=== PATIENT | female | born 1975 | race Caucasian/White ===

== ENCOUNTER 2025-08-11 10:32 | Emergency (ER) | payer BC, SELFPAY ==
[2025-08-11] VITALS (17 sets, daily range): BP systolic 110–147; BP diastolic 68–99; PULSE 56–78; RESP 13–20; TEMP 36.7; O2SAT 97–100
--- NOTE | ~2025-08-11 | CT_ITS ---
CT abdomen pelvis w con Clinical History: LUQ abdominal pain, constipation, diarrhea . Comparison: None Technique: Axial images lung bases to symphysis pubis 100 mL Omnipaque 350 Coronal, sagittal reformats CT images acquired with automatic exposure control for dose reduction DLP: 369 mGy-cm Findings: Lung bases: Clear. Visualized heart and pericardium: Unremarkable. Liver: Hypodense focus segment 4A peripherally; likely focal fat, cyst, or hemangioma. Gallbladder: Contracted. Spleen: Unremarkable. Pancreas: Unremarkable. Adrenal glands: Unremarkable. Kidneys: Bilateral lobulation and/or cortical defects. Right kidney- No hydronephrosis. No renal stones. Left kidney- No hydronephrosis. No renal stones. Distal esophagus/stomach: Small hiatal hernia. Small bowel loops: Normal caliber and wall thickness. Suture line right lower quadrant. Colon: A few diverticula. Normal caliber and wall thickness. Normal RLQ appendix. Moderate volume stool. Nodes: No enlarged nodes. Peritoneum: No ascites. No free air. Urinary bladder: Unremarkable. Uterus: Unremarkable. Adnexa: No masses. Bones: No acute bony abnormality. Soft tissues: Unremarkable. Aorta: No aneurysm or dissection. IVC: Unremarkable. Main portal vein/SMV/splenic vein: Patent. IMPRESSION: 1. No acute findings. Reviewed, dictated and finalized at location R. IMPRESSION: 1. No acute findings.
--- NOTE | ~2025-08-11 | XR_ITS ---
Examination: XR chest 1V portable Clinical History: chest pain Comparison: None Technique: Portable AP Findings: Heart size normal. Lungs clear. No acute bony abnormality. IMPRESSION: 1. No acute cardiopulmonary findings given portable technique. Reviewed, dictated and finalized at location R.
--- NOTE | 2025-08-11 10:37 | ED_ITS ---
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 Patient complaining of showed relies abdominal pain for months mainly at the epigastric area. She denies any fever, chills, vomiting, diarrhea, constipation. History of hypertension hyperlipidemia coronary stents, tobacco dependent, uses marijuana daily, drinks alcohol occasionally. Patient reports a lot of stress lately. Patient is scheduled for cardiac stress test next month. Patient currently on aspirin and Plavix Related Data Home Medications ?Medication ?Instructions ?Recorded ?Confirmed ?Last Taken ?Type aspirin 81 mg chewable tablet 81 mg PO DAILY 08/11/25 Unknown History (Aspirin Childrens) atorvastatin 80 mg tablet 80 mg PO QPM 08/11/25 Unkno wn History carvedilol 6.25 mg tablet 6.25 mg PO Q12H 08/11/25 Un known History cholecalciferol (vitamin D3) 25 25 mcg PO DAILY Unknown History mcg (1,000 unit) capsule (Vitamin D3) clopidogrel 75 mg tablet 75 mg PO DAILY 08/11/25 Unk nown History famotidine 20 mg tablet 20 mg PO DAILY 08/11/25 Unk nown History lisinopril 20 mg tablet 20 mg PO DAILY 08/11/25 Unk nown History nitroglycerin 0.4 mg sublingual 0.4 mg sublingual Q5M 08/11/25 08/11/25 History tablet Allergies Allergy/AdvReac Type Severity Reaction Status Date / Time codeine Allergy Intermediate Itching Verified 08/11/25 10:45 Review of Systems 2 Review of Systems: All systems reviewed & are unremarkable except as noted in HPI and below Exam 2 Narrative: General appearance: Well-developed, well-nourished Skin: flushed, red skin of the neck and upper chest Head: Normocephalic, nontraumatic Eyes: Clear conjunctiva ENT: Oropharynx normal, ears normal, nose normal Neck: Supple, nontender Chest and respiratory: Airway patent, no respiratory distress, no accessory muscle use Heart: Regular rate/rhythm Abdomen: Soft, Mild diffuse tenderness, distended, quite bowel sounds, no guarding or rebound Vascular: Normal peripheral pulses, normal capillary refill. Musculoskeletal: Normal range of motion, nontender back Neurologic: Alert and oriented ?3, DRUG ENFORCEMENT AGENT is normal as tested, no gross motor deficit Course Vital Signs Vital signs: Vital Signs Temperature 36.7 C 08/11/25 10:33 Pulse Rate 61 08/11/25 10:33 Respiratory Rate 18 08/11/25 10:33 Blood Pressure 132/99 H 08/11/25 10:33 Pulse Oximetry 100 08/11/25 10:33 Oxygen Delivery Room Air 08/11/25 10:33 Temperature 36.7 C 08/11/25 10:33 Pulse Rate 61 08/11/25 10:33 Respiratory Rate 18 08/11/25 10:33 Blood Pressure 132/99 H 08/11/25 10:33 Pulse Oximetry 100 08/11/25 10:33 Oxygen Delivery Room Air 08/11/25 10:33 MDM - Chest Pain MDM Narrative Medical decision making narrative: patient came with multiple symptoms. Vital signs showing blood pressure 132/99 otherwise within normal limit Physical examination as above Differential diagnosis: Stress, anxiety, acute coronary syndrome, pancreatitis, gastritis, esophagitis, diverticulitis, cholecystitis, constipation, urinary tract infection. Blood workup today include CBC, CMP, troponin, lipase, pro BMP showed ADMISSIONS RECRUITER of 570 Chest x-ray showed no acute abnormality EKG on arrival showed sinus bradycardia at 57 beats per minute otherwise normal EKG. CT abdomen and pelvis with IV contrast showed insignificant abnormality. Patient abdominal pain resolved immediately after having IV contrast. Patient believes IV contrast cured her abdominal pain. Currently patient is asymptomatic, denies any chest pain or abdominal pain. Patient declined to be hospitalized at this time I would like to sign against medical advice I declare that I have personally explained to the patient the risks and consequences involved in leaving this facility at this time. the benefits of continued treatment and/or hospitalization. And the alternatives. If any. to continued treatment and/or hospitalization. if applicable.I have not identified any psychosis, drugs, mental illness, or medical illness that alters decision- making capacity (reasoning abilities ). Differential Diagnosis Differential diagnosis: Likely other (As above) Medical Records Data Attestation: I reviewed the patient's medical records. Lab Data Attestation: I reviewed the patient's lab results. 08/11/25 11:00 08/11/25 11:00 Labs: Lab Results 08/11/25 08/11/25 Range/Units 11:00 11:56 WBC 10.9 H (4.8-10.8) K/mm3 RBC 4.32 (4.20-5.40) M/mm3 Hgb 12.0 (12.0-15.0) g/dL Hct 38.6 (35.0-49.0) % MCV 89.4 (78.0-102.0) fL MCH 27.8 (27.0-31.0) pg MCHC 31.1 L (32-36) g/dL RDW 18.1 H (11.6-14.4) % Plt Count 317 (150-420) K/mm3 MPV 9.9 (9.2-11.8) fl Immature Gran % (Auto) 0.7 H (0.0-0.0) % Neut % (Auto) 61.1 (50.0-70.0) % Lymph % (Auto) 27.5 (18.0-42.0) % Sharp % (Auto) 7.6 (2.0-11.0) % Eos % (Auto) 2.6 (1.0-6.0) % Baso % (Auto) 0.5 (0.0-1.0) % Lymph # (Auto) 2.98 (1.10-4.50) K/mm3 Sharp # (Auto) 0.82 (0.10-0.90) K/mm3 Eos # (Auto) 0.28 (0.02-0.50) K/mm3 Baso # (Auto) 0.05 (0.00-0.10) K/mm3 Abs Immat Gran (auto) 0.08 H (0.00-0.00) K/mm3 Absolute Neuts (auto) 6.64 (1.70-7.20) K/mm3 Absolute Nucleated RBC 0.00 (0.00-0.00) K/mm3 Nucleated RBC % 0.0 (0-0.0) % PT 10.3 (9.50-12.1) Seconds INR 0.9 APTT 24.7 (23.9-30.70) Sec Sodium 140 (137-145) mmol/L Potassium 4.6 (3.4-5.0) mmol/L Chloride 106 (98-107) mmol/L Carbon Dioxide 24 (22-30) mmol/L Anion Gap 10 (4-12) mmol/L BUN 26 H (7-17) mg/dL Creatinine 1.28 H (0.7-1.0) mg/dL Estim Creat Clear Calc 45 ml/min Estimated GFR 44 L (59 - ) Glucose 129 H (65-110) mg/dL Calculated Osmolality 296 H (285-295) mOsm/kg Calcium 9.0 (8.4-10.2) mg/dL Total Bilirubin 0.5 (0.2-1.3) mg/dL AST 25 (14-36) U/L ALT 18 (6-35) U/L Alkaline Phosphatase 97 (38-126) U/L Troponin I < 0.012 (0.000-0.034) ng/mL NT-Pro-B Natriuret Pep 570 H (19.9-100) pg/mL Total Protein 7.7 (6.3-8.2) g/dL Albumin 4.1 (3.5-5.1) g/dL Lipase 68 (23-300) U/L Urine Color Light yellow (Yellow) Urine Appearance Clear (Clear) Urine pH 5.5 (5.0-8.0) Ur Specific [place] <= 1.005 L (1.010-1.020) Urine Protein Negative (Negative) Urine Glucose (UA) Negative (Negative) Urine Ketones Negative (Negative) Ur Blood (Man) Negative (Negative) Urine Nitrate Negative (Negative) Urine Bilirubin Negative (Negative) Urine Urobilinogen 0.2 (0.2-1.0) mg/dL Leukocyte Esterase Rfl Trace H (Negative) MORALES/UL Urine RBC 0-2 (0-2) /hpf Urine WBC 0-3 (0-3) /hpf Ur Squamous Epith Cells Moderate H (Few) /hpf Urine Bacteria 2+ (None) /hpf Imaging Data Radiologist's impression: Impressions Chest X-Ray 08/11/25 11:22 IMPRESSION: 1. No acute cardiopulmonary findings given portable technique. Abdomen/Pelvis CT 08/11/25 12:23 IMPRESSION: 1. No acute findings. ECG Data EKG #1: Attestation: I personally reviewed and interpreted this ECG as follows: ECG completion date: 08/11/25 Prior ECG tracings: available for review Interpretation: sinus bradycardia at 57 beats per minute, otherwise normal EKG Critical Care Time Critical Care Time Critical Care Time: No Discharge Plan Discharge Clinical Impression: Chest pain, Chronic abdominal pain, Anxiety-like symptoms Patient Disposition: Left Against Medical Advice Condition: Guarded Prognosis Instructions: Chest Pain (ED), Abdominal Pain (ED) Additional Instructions: . Patient Language: Swazi Prescriptions: New dicyclomine 20 mg tablet 20 mg PO QID Qty: 20 0RF No Action atorvastatin 80 mg tablet 80 mg PO QPM carvedilol 6.25 mg tablet 6.25 mg PO Q12H lisinopril 20 mg tablet 20 mg PO DAILY clopidogrel 75 mg tablet 75 mg PO DAILY famotidine 20 mg tablet 20 mg PO DAILY nitroglycerin 0.4 mg tablet, sublingual 0.4 mg sublingual Q5M Patient Comments: q5min x3 aspirin [Aspirin Childrens] 81 mg tablet,chewable 81 mg PO DAILY cholecalciferol (vitamin D3) [Vitamin D3] 25 mcg (1,000 unit) capsule 25 mcg PO DAILY Follow-up/Referrals: UNKNOWN,DOCTOR [Non-Staff]
--- NOTE | 2025-08-11 10:39 | ECG_ITS ---
Test Date: 2025-08-11 11:07:36 Measurements Intervals [place] Rate: 57 P: 61 CA: 167 QRS: 56 QRSD: 96 T: 63 QT: 434 QTc: 424 Interpretive Statements SINUS BRADYCARDIA No previous ECG available for comparison Electronically Signed On 08-12-2025 07:30:08 CDT by Debbie Devries M.D.
--- OUTSIDE RECORDS SUMMARY | 2025-08-11 10:58 | XMS_ITS | Clinical Summary ---
Author Organization [facility] Address [address] [place] [address] Care Team Providers Care Dispatcher Maintenance Name Role Phone Derian Núñez Primary Care Provider [phone] Allergies Active Allergy Reactions Criticality Noted Date Comments Codeine Unknown 10/12/2024 Encounters Date Type Department Care Team Description 05/16/2025 Telephone [facility] - [place] [address] [place] [address] Chidi Wright MD 05/16/2025 Telephone [facility] - [place] [address] [place] [address] Joselyn Marcial APRN, BUILDING ENGINEER Procedure; Appointment 05/14/2025 Telephone [facility] - [place] [address] [place] [address] Chidi Wright MD from Last 3 Months Social History Tobacco Use Types Packs/Day Years Used Date Smoking Tobacco: Every Day Cigarettes Tobacco Cessation:Ready to Q uit: Not Asked; Counseling Given: Not Answered Comments Unknown Sex and Gender Information Value Date Recorded Sex Assigned at Not on file Legal Sex Female 2:57 PM CDT Gender Identity Not on file Sexual Orientation Not on file Plan of Treatment Health Maintenance Due Date Last Done Comments Hepatitis C Virus (HCV) Screening 1974 Mammogram 1974 TdaP Immunization 1974 Hepatitis B Immunization (1 of 3 - 19+ 3-dose series) 1993 Pneumococcal Immunization (5 0+ years) (1 of 2 - PCV) 1993 Pap Smear 1995 Cervical Cancer Screening (CCS) 2004 HPV/Cotest 2004 Cologuard 2019 Colonoscopy 2019 Colorectal Cancer Screening 2019 Immunochemical Fecal Occult Blood 2019 Zoster Immunization (1 of 2) 2024 Influenza Immunization (#1) 2025 SARS-COV-2 Immunization ( season) 2025 Respiratory Syncytial Virus (RSV) Immunization (Adult) (1 - 1-dose 75+ series) 2049 Human Papillomavirus (HPV) Immunization Aged Out No longer eligible b ased on patient's age to complete this topic Meningococcal Immunization (ACWY) Aged Out No longer eligible based on patient's age to complete this topic Rotavirus Immunization Aged Out No lo nger eligible based on patient's age to complete this topic Insurance MEDICAID [place] Care Teams Dispatcher Maintenance Relationship Specialty Start Date End Date Derian Núñez PAC [address] [place] [address] PCP - General Physician Sharepoint Analyst 10/12/24
--- OUTSIDE RECORDS SUMMARY | 2025-08-11 10:58 | XMS_ITS | Data Portability ---
Author Organization [facility] [place] Yu Address [address] [facility] [place] [address] Care Team Providers Care Income Tax Analyst Name Role Phone LAUREN TOMLINSON Primary Care Provider JAYLIN PRATT Substation Engineer Assessment No assessment recorded. Plan of Treatment Reminders Order Date Submit Date Provider Last Modified By Organization Details Last Modified Time Details Appointments [facility] 30 2024 08:00A M Usha da silva TOWBOAT CAPTAIN-Bc Not available Not available Not available ANY 15 2024 10:30A M KARISHMA CASAREZ Not available Not available Not available ANY 15 2024 08:45A M Jaylin Pratt MD Not available Not available Not available Lab amyl ase + lipa se, seru m 2024 025 [facility], [address] [place] [address] 2, [place], [address], 08/08/2025 07:13:55 CBC w/ auto diff 2024 025 [facility], [address] [facility] [address], [place], [address], 08/08/2025 07:13:54 CMP, seru m or plas ma 2024 025 [facility], [address] [facility], [facility] 2, [place], [address], 08/08/2025 07:13:53 jeanette min D, 25-h ydro xy, tota l, seru m 2024 025 [facility], [address] [place] [address], [place], [address], 08/08/2025 07:13:55 CMP, seru m or plas ma 2024 025 [facility], [address] [place] [address], [place], [address], 07/04/2025 10:06:26 lipi d pane l, seru m 2024 025 [facility], [address] [place] [address], [place], [address], 07/04/2025 10:06:26 CBC 2024 025 [facility], [address] [place] [address], [place], [address], 05/11/2025 06:15:15 CMP, seru m or plas ma 2024 025 [facility], [address] [place] [address], [place], [address], 05/11/2025 06:15:13 lipi d hennye l, seru m 2024 025 [facility], [address] [place] [address], [place], [address], 05/11/2025 06:15:12 HbA1 c (hem oglo bin A1c) , bloo d 2024 025 [facility], [address] [place] [address], [place], [address], 05/10/2025 06:15:08 Referral obst etri kosta and gyne colo gist refe rral 2024 025 buck Ragland APN, [address], [address], [place], [address], 07/09/2025 08:28:12 card iolo gist refe rral 2024 025 emmett Pratt MD, [address], [place], [address], 05/10/2025 11:42:[address] refe rral 2024 025 [facility] [place], [address] [facility], [address], [place], [address], 06/20/2025 09:32:12 Procedures None rita rded . Surgeries None rita rded . Imaging US, echo card iogr am, arzate stho raci c, comp lete , w/ colo r flow - Echo with Tiwa ri 2024 025 [facility], [address], [address], [place], [address], 07/25/2025 10:22:38 SPEC T, myoc ardi al perf usio n, mult iple - Gemma dmil l Myov iew with Tiwa ri 2024 025 [facility], [address], [address], [place], [address], 07/25/2025 10:22:39 US, abdo men, comp lete 2024 025 [facility], [address], [place], [address], 08/06/2025 07:59:27 MAMM O, scre enin g, bila alisson l 2024 025 [facility], [address], [place], [address], 07/30/2025 09:52:44 elec troc ardi ogra m 2024 025 [email or web address] In-Office Order, Internal Use Only DO Not Attach Compendium DO Not Attach Compendium, Do Not Delete/merge, [id number] 05/23/2025 11:13:13 MRI, live r, w/wo cont rast 2023 024 [facility] ([facility]), [address], [place], [address], 10/25/2024 13:54:26 Medication Orders willaim kevin 7 mg/2 4 hr robb y arzate sder mal patc h 2024 025 [id number], [address], [place], [place], [id number], 07/25/2025 10:19:44 Nitr omis t 400 mcg/ spra y arzate slin gual aero estefania 2024 025 [facility], [address], [place], [place], [id number], 07/25/2025 14:46:30 famo tidi ne 20 mg tabl et 2024 025 [facility], [address], [place], [place], [id number], 06/24/2025 12:13:21 chol ecal cife rol (vit jean-baptiste D3) 25 mcg (1,0 00 unit ) tabl et 2024 025 [facility]16294, [address], [place], [place], [id number], 06/24/2025 12:13:07 ator vast atin 80 mg tabl et 2024 025 [facility]02946, [address], [place], [place], [id number], 05/23/2025 11:06:43 carv ottoniel ol 3.12 5 mg tabl et 2023 025 [facility]37[facility], [address], [place], [place], [id number], 06/13/2025 16:03:49 Patient TargetsNo targets recorded. Patient Instructions Encounter Date Encounter Id Patient Instructions Last Modified By Organization Details Last Modified Time 10/16/2024 [id number] influenza (flu) vaccine: care instructions [email or web address] Not available 10/16/2024 12:36:18 A healthy lifestyle: care instructions jnanney Not available 10/16/2024 12:08:04 05/09/2025 [id number] learning about high blood pressure jnanney Not available 05/09/2025 15:21:46 05/23/2025 [id number] high cholesterol : care instructions [email or web address] Not available 05/23/2025 11:10:41 A healthy lifestyle: care instructions Not available 05/23/2025 11:06:35 Quitting Tobacco : Care Instructions [email or web address] Not available 05/23/2025 11:06:36 high blood pressure: care instructions Not available 05/23/2025 11:10:41 chronic kidney disease: care instructions [email or web address] Not available 05/23/2025 11:10:41 06/24/2025 [id number] Tdap (tetanus, diphtheria, pertussis) vaccine: what you need to know Not available 06/24/2025 12:04:41 substance use disorder: care instructions [email or web address] Not available 06/24/2025 12:13:02 Quitting Tobacco : Care Instructions [email or web address] Not available 06/24/2025 12:13:02 Plan of care has been discussed with patient including expected therapeutic benefits and potential side effects of prescribed medication and treatments. Patient verbalizes understanding and is in agreement with the plan of care. Patient was instructed to keep all scheduled appointments and contact the clinic for any additional problems. Health Maintenance: - CRC screening (45-75):Due at 45 years. colonoscopy scheduled - Osteoporosis screening: Due at 65. - Lipid screening (>45 unless additional risk factors): 05/09/25 - HIV: Declined - HepC: Declined -Eye exam: 2024 -Dental Exam: endentulous - Immunizations: - Influenza: Due fall. - Prevnar 20: Due at 65. - Tdap/Td ([id number]): 06/24/25 - Zoster (>60):Due at 60. - COVID-19: patient reports history of vaccine -Labs ordered this visit: CMP, CBC, tre-lipase, vitamin d Females: Pap smear: referral medical office asst Mammogram: ordered DEXA: n/a [email or web address] Not available 07/09/2025 12:34:23 07/25/2025 [id number] A healthy lifestyle: care instructions [email or web address] Not available 07/25/2025 10:19:29 Quitting Tobacco : Care Instructions [email or web address] Not available 07/25/2025 10:19:29 Learning About Benefits of Quitting Smoking [email or web address] Not available 07/25/2025 10:19:29 Reason for Referral Substation Engineer Referral for Hi story of myocardial infarction Referring Physician: Derian Núñez [facility], Encounter Date: 05/09/2025 Check Services Clerk Referral for Screening for malignant neoplasm of colon Referring Physician: Derian Núñez [facility], Encounter Date: 05/09/2025 Dining Services Director And Gynecologis t Referral for Sampling of cervix for Papanicolaou smear Referring Physician: Lauren Tomlinson [facility], Encounter Date: 06/24/2025 Results Created Date Observation Date Name Description Value Unit Range Abnormal Flag Note LastModifiedBy Organization Detail LastModifiedTime 10/12/20 24 10/12/2024 Creat inine [Mass /volu me] in Blood creatinine [mass/volume ] in blood 1.2 mg/dL low: 0.6mg/ dLhigh : 1.3mg/ dL Not Available Not Available 05/07/2025 16:42:09 10/12/20 24 10/12/2024 Creat inine [Mass /volu me] in Blood interpretati on and review of laboratory results Normal Not Available Not Available 04/15 16:42:09 05/09/20 25 05/10/2025 HEMOG LOBIN A1C hemoglobin A1C 5.7 % 4.8-5. 6 above high normal Predi abete s: 5.7 - 6.4 Diabe trey: >6.4 Glyce rianna contr ol for adult s with diabe trey: <7.0 Not Available [facility] ([facility]) [address] [place], [address], 05/10/2025 06:15:08 05/09/20 25 05/10/2025 LIPID PANEL cholesterol, total 158 mg/dL 100-19 9 Not Available [facility] ([facility]) [address] [place], [address], 05/11/2025 06:15:12 05/09/20 25 05/10/2025 LIPID PANEL triglyceride s 189 mg/dL 0-149 above high normal Not Available [facility] ([facility]) [address] [place], [address], 05/11/2025 06:15:12 05/09/20 25 05/10/2025 LIPID PANEL HDL cholesterol 52 mg/dL 40-999 Not Available [facility] ([facility]) [address] [place], [address], 05/11/2025 06:15:12 05/09/20 25 05/10/2025 LIPID PANEL VLDL cholesterol krystal 38 mg/dL 5-40 Not Available [facility] ([facility]) [address] [place], [address], 05/11/2025 06:15:12 05/09/20 25 05/10/2025 LIPID PANEL LDL chol calc ([facility]) 97 mg/dL 0-99 Not Available [facility] ([facility]) [address] [place], [address], 05/11/2025 06:15:12 05/09/20 25 05/10/2025 COMP. METAB OLIC PANEL (14) glucose 71 mg/dL 70-99 Not Available [facility] ([facility]) [address] [facility] [place], [address], 05/11/2025 06:15:13 05/09/20 25 05/10/2025 COMP. METAB OLIC PANEL (14) BUN 16 mg/dL 6-24 Not Available [facility] ([facility]) [address] [place] [place], [address], 05/11/2025 06:15:13 05/09/20 25 05/10/2025 COMP. METAB OLIC PANEL (14) creatinine 1.29 mg/dL 0.76-1 .27 above high normal Not Available [facility] ([facility]) [address] [facility] [place], [address], 05/11/2025 06:15:13 05/09/20 25 05/10/2025 COMP. METAB OLIC PANEL (14) eGFR 51 >=60 below low normal Units for eGFR value s are mL/mi n/1.7 3 The eGFR Calcu latio n has not been valid ated for patie nts under the age of 18. If test resul ts are displ ayed for a patie nt under the age of 18, disre rolanda that value . Not Available [facility] ([facility]) [address] [facility] [place], [address], 05/11/2025 06:15:13 05/09/20 25 05/10/2025 COMP. METAB OLIC PANEL (14) BUN/creatini ne ratio 12 9-23 Not Available [facility] ([facility]) [address] [facility] [place], [address], 05/11/2025 06:15:13 05/09/20 25 05/10/2025 COMP. METAB OLIC PANEL (14) sodium 141 mmol/ L 134-14 4 Not Available [facility] ([facility]) [address] [facility] [place], [address], 05/11/2025 06:15:13 05/09/20 25 05/10/2025 COMP. METAB OLIC PANEL (14) potassium 4.7 mmol/ L 3.5-5. 2 Not Available [facility] ([facility]) [address] [facility] [place], [address], 05/11/2025 06:15:13 05/09/20 25 05/10/2025 COMP. METAB OLIC PANEL (14) chloride 108 mmol/ L 96-106 above high normal Not Available [facility] ([facility]) [address] [place] [place], [address], 05/11/2025 06:15:13 05/09/20 25 05/10/2025 COMP. METAB OLIC PANEL (14) carbon dioxide, total 20 mmol/ L 20-29 Not Available [facility] ([facility]) [address] [facility] [place], [address], 05/11/2025 06:15:13 05/09/20 25 05/10/2025 COMP. METAB OLIC PANEL (14) calcium 9.4 mg/dL 8.7-10 .2 Not Available [facility] ([facility]) [address] [facility] [place], [address], 05/11/2025 06:15:13 05/09/20 25 05/10/2025 COMP. METAB OLIC PANEL (14) protein, total 7.3 g/dL 6.0-8. 5 Not Available [facility] ([facility]) [address] [place] [place], [address], 05/11/2025 06:15:13 05/09/20 25 05/10/2025 COMP. METAB OLIC PANEL (14) albumin 4.4 g/dL 3.9-4. 9 Not Available [facility] ([facility]) [address] [facility] [place], [address], 05/11/2025 06:15:13 05/09/20 25 05/10/2025 COMP. METAB OLIC PANEL (14) globulin, total 2.9 g/dL 1.5-4. 5 Not Available [facility] ([facility]) [address] [place], [address], 05/11/2025 06:15:13 05/09/20 25 05/10/2025 COMP. METAB OLIC PANEL (14) A/G ratio 2.0 1.2-2. 2 Not Available [facility] ([facility]) [address] [place], [address], 05/11/2025 06:15:13 05/09/20 25 05/10/2025 COMP. METAB OLIC PANEL (14) bilirubin, total 0.2 mg/dL 0.0-1. 2 Not Available [facility] ([facility]) [address] [place], [address], 05/11/2025 06:15:13 05/09/20 25 05/10/2025 COMP. METAB OLIC PANEL (14) alkaline phosphatase 126 IU/L 44-121 above high normal Not Available [facility] ([facility]) [address] [place], [address], 05/11/2025 06:15:13 05/09/20 25 05/10/2025 COMP. METAB OLIC PANEL (14) AST (SGOT) 16 U/L 0-40 Not Available [facility] ([facility]) [address] [place], [address], 05/11/2025 06:15:13 05/09/20 25 05/10/2025 COMP. METAB OLIC PANEL (14) ALT (SGPT) 12 IU/L 0-32 Not Available [facility] ([facility]) [address] [place], [address], 05/11/2025 06:15:13 05/09/20 25 05/11/2025 CARDI OVASC ULAR REPOR T interpretati on Note Suppl ement al repor t is avail able. Not Available [facility] ([facility]) [address] [facility], [place], [address], 05/11/2025 06:15:14 05/09/2005/11/2025 CARDI OVASC ULSIL REPOR T pdf . Not Available [facility] ([facility]) [address] [facility], [place], [address], 05/11/2025 06:15:14 05/09/2005/10/2025 CBC, PLATE LET, NO DIFFE RENTI AL WBC 11.4 x10e3 /uL 3.4-10 .8 above high normal Not Available [facility] ([facility]) [address] [facility], [place], [address], 05/11/2025 06:15:15 05/09/2005/10/2025 CBC, PLATE LET, NO DIFFE RENTI AL RBC 4.50 x10e6 /uL 3.77-5 .28 Not Available [facility] ([facility]) [address] [facility], [place], [address], 05/11/2025 06:15:15 05/09/2005/10/2025 CBC, PLATE LET, NO DIFFE RENTI AL hemoglobin 12.0 g/dL 11.1-1 5.9 Not Available [facility] ([facility]) [address] [facility], [place], [address], 05/11/2025 06:15:15 05/09/2005/10/2025 CBC, PLATE LET, NO DIFFE RENTI AL hematocrit 38.2 % 34.0-4 6.6 Not Available [facility] ([facility]) [address] [facility], [place], [address], 05/11/2025 06:15:15 05/09/2005/10/2025 CBC, PLATE LET, NO DIFFE RENTI AL MCV 85 fL 79-97 Not Available [facility] ([facility]) [address] [facility], [place], [address], 05/11/2025 06:15:15 05/09/20 25 05/10/2025 CBC, PLATE LET, NO DIFFE RENTI AL MCH 26.7 pg 26.6-3 3.0 Not Available [facility] ([facility]) [address] [facility], [place], [address], 05/11/2025 06:15:15 05/09/20 25 05/10/2025 CBC, PLATE LET, NO DIFFE RENTI AL MCHC 31.4 g/dL 31.5-3 5.7 below low normal Not Available [facility] ([facility]) [address] [facility], [place], [address], 05/11/2025 06:15:15 05/09/20 25 05/10/2025 CBC, PLATE LET, NO DIFFE RENTI AL RDW 21.4 % 11.5-1 4.5 above high normal Not Available [facility] ([facility]) [address] [place], [address], 05/11/2025 06:15:15 05/09/20 25 05/10/2025 CBC, PLATE LET, NO DIFFE RENTI AL platelets 437 x10e3 /uL 150-45 0 Mean Plate let Volum e 11.2 fL 8.9-1 2.7 N Not Available [facility] ([facility]) [address] [place], [address], 05/11/2025 06:15:15 05/09/20 25 05/10/2025 CBC, PLATE LET, NO DIFFE RENTI AL NRBC 0 % 0-0 Not Available [facility] ([facility]) [address] [place], [address], 05/11/2025 06:15:15 10/14/20 24 10/12/2024 CT, chest , w/wo contr ast No observ ation record ed. [facility] [address], [place], [address], 10/15/2024 11:08:14 10/25/20 24 10/25/2024 MRI, liver , w/wo contr ast No observ ation record ed. [facility] [address], [place], [address], 10/25/2024 16:40:46 05/23/20 25 05/23/2025 elect rocar diogr am No observ ation record ed. [facility] In-Office Order Internal Use Only DO Not Attach Compendium DO Not Attach Compendium, Do Not Delete/merge, [id number] 05/23/2025 12:17:16 05/23/20 elect rocar diogr am No observ ation record ed. Not Available 2024 13:53:59 06/13/20 jada r monit or No observ ation record ed. [facility] [address], [place], [address], 06/13/2025 16:08:04 07/30/20 25 07/23/2025 MAMMO , scree roddy, bilat eral No observ ation record ed. [facility] [address] [place], [address], 07/30/2025 16:32:11 Result Notes None recorded. Problems Name Problem SNOMED Code Status Onset Date Resolution Date Notes Provider Name and Address Organization Details Recorded Time History of myocardial infarction 200968581 Active 2023 CARMEL TIERNEY MD Attn: Phill osman,[address] [facility], [place], [address], [facility] 4 14:14:06 Essential hypertension 15480530 Active 2023 CARMEL TIERNEY MD Attn: Phill osman,[address], [place], [address], [facility] - [facility] 4 14:14:13 Prediabetes 195865369 Active 2023 CARMEL TIERNEY MD Attn: Phill g,[address] [facility], [place], [address], [facility] - [facility] 4 14:14:21 Chronic kidney disease stage 3A 682759330 Active 2023 CARMEL TIERNEY MD Attn: Phill g,[address] [facility], [place], [address], [facility] - [facility] 4 14:15:36 Problem Notes None recorded. Procedures Surgical History Date Name Laterality Status Provider Name and Address Organization Details Recorded Time 3 Hernia Repair completed Ana Paula Pacheco [place] - [place] 09/20/2023 14:58:28 3 open heart surgery completed Lauren Salazar MA [facility] 08/02/2023 10:14:38 2 Hernia Repair completed Ana Paula Pacheco [place] - [facility] 09/20/2023 14:58:22 section completed PARTHA BURTON NP Attn: Accounting,[address] [facility], [place], [address], [facility] - [facility] 10/22/2024 10:04:39 Imaging Results None recorded. Procedure Notes None recorded. Medical Equipment None Reported. Allergies Allergen ID Allergen Name Allergen Category Reaction Reaction Severity Criticality Documentation Date Start Date Code Code System Note Provider Name and Address Organization Details Recorded Time 325118 codeine medicatio n rash Not available Not available 08/02/2023 2670 RxNorm Lauren Salazar MA null, [place] - [facility] 3 10:08:22 Medications Name Sig Start Date Stop Date Status Note LastModified by Organization Details LastModified Time atorvastati n 40 mg tablet TAKE 1 TABLET BY MOUTH EVERY DAY 06/24 completed Not Available Not Available Not Available buspirone 5 mg tablet Take 1 tablet twice a day by oral route for 30 days. 01/22 completed Not Available Not Available Not Available atorvastati n 80 mg tablet TAKE 1 TABLET BY MOUTH EVERY DAY active Not Available Not Available No t Available carvedilol 6.25 mg tablet TAKE 1 TABLET BY MOUTH TWICE DAILY active Not Available Not Available No t Available trazodone 50 mg tablet Take 1 tablet every day by oral route at bedtime for 30 days. 09/20 completed Not Available Not Available Not Available lisinopril 20 mg tablet TAKE 1 TABLET BY MOUTH EVERY DAY active Not Available Not Available No t Available clopidogrel 75 mg tablet TAKE 1 TABLET BY MOUTH EVERY DAY active Not Available Not Available No t Available carvedilol 3.125 mg tablet TAKE 1 TABLET BY MOUTH TWICE DAILY 06/13 completed Not Available Not Available Not Available famotidine 20 mg tablet TAKE 1 TABLET BY MOUTH TWICE DAILY NEEDED active Not Available Not Available No t Available nitroglycer in 400 mcg/spray translingua l [place] by transling ual route for 30 days. active Not Available Not Available No t Available nitroglycer in 0.4 mg sublingual tablet DISSOLVE ONE TABLET UNDER TONGUE NEEDED FOR CHEST PAIN DIRECTED active Not Available Not Available No t Available aspirin 81 mg chewable tablet Chew 1 tablet every day by oral route. active Not Available Not Available No t Available ketorolac 60 mg/2 mL intramuscul ar solution Inject 2 mL by intramusc ular route. 09/12 completed Not Available Not Available Not Available nicotine 7 mg/24 hr daily transdermal patch APPLY 1 PATCH TOPICALLY TO THE SKIN EVERY DAY active Not Available Not Available No t Available cholecalcif jonelle (vitamin D3) 25 mcg (1,000 unit) tablet TAKE 1 TABLET BY MOUTH EVERY DAY FOR 90 DAYS active Not Available Not Available No t Available Nitromist 400 mcg/spray translingua l aerosol PLACE 1 SPRAY (0.4 MG) BY TRANSLING UAL ROUTE ONTO OR UNDER THE TONGUEAT THE FIRST SIGN OF AN ATTACK; NO MORE THAN 3 SPRAYS/15 MINUTE PERIOD 07/25 completed Not Available Not Available Not Available Vitals Date Recorded Body height Body mass index (BMI) Body weight Oxygen saturation Oxygen saturation in Arterial blood by Pulse oximetry Heart rate Systolic And Diastolic Provider Name and Address Organization Details Last Updated DateTime 5 162.56 cm 27.8 kg/m2 74619.9 6 g 98 % 98 % 91 /min 136/84 mm[Hg] Ana Paula Pacheco [place] - [facility] 5 15:02:14 Date Recorded Body height Body mass index (BMI) Body weight Heart rate Oxygen saturation Oxygen saturation in Arterial blood by Pulse oximetry Systolic And Diastolic Provider Name and Address Organization Details Last Updated DateTime 5 162.56 cm 27.6 kg/m2 56404.3 7 g 71 /min 99 % 99 % 110/78 mm[Hg] Angela Sams RN [facility] 5 10:24:50 Date Recorded Body height Body mass index (BMI) Body weight Oxygen saturation Oxygen saturation in Arterial blood by Pulse oximetry Heart rate Respiratory rate Body temperature Systolic And Diastolic Provider Name and Address Organization Details Last Updated DateTime 5 162.56 cm 27.7 kg/m2 60350.4 5 g 99 % 99 % 65 /min 16 /min 97.3 [degF] 115/83 mm[Hg] Judy Buchanan MA [facility] 5 11:44:34 Date Recorded Body height Body mass index (BMI) Body weight Respiratory rate Heart rate Oxygen saturation Oxygen saturation in Arterial blood by Pulse oximetry Systolic And Diastolic Provider Name and Address Organization Details Last Updated DateTime 5 162.56 cm 27.1 kg/m2 03256.5 9 g 18 /min 84 /min 98 % 98 % 112/72 mm[Hg] Katarina Kumar LPN [facility] 5 10:01:00 Date Recorded Body height Body mass index (BMI) Body weight Oxygen saturation Oxygen saturation in Arterial blood by Pulse oximetry Heart rate Systolic And Diastolic Provider Name and Address Organization Details Last Updated DateTime 4 162.56 cm 28 kg/m2 58690.5 6 g 99 % 99 % 79 /min 110/72 mm[Hg] Lauren Salazar MA [facility] 4 11:27:15 Social History Question Answer Notes LastModified by Organizat ion Details LastModified Time Tobacco Smoking Status Current Every Day Smoker Lauren [facility]azar [facility], [facility] 08/02/2023 10:13:33 Do You Have An Advance Directive? No Information not available 06/24/2025 Are You Blind Or Do You Have Difficulty Seeing? Yes Wears Glassses Information not available 08/02/2023 What Is Your Level Of Caffeine Consumption? Moderate Information not available 06/24/2025 In The 14 Days Before Symptom Onset, Have You Had Close Contact With A Laboratory-confi rmed COVID-19 While That Case Was Ill? No Information not available 06/24/2025 In The 14 Days Before Symptom Onset, Have You Had Close Contact With A Person Who Is Under Investigation For COVID-19 While That Person Was Ill? No Information not available 06/24/2025 Have You Been To An Area Known To Be High Risk For COVID-19? No Information not available 06/24/2025 Are You Deaf Or Do You Have Serious Difficulty Hearing? No Lt Difficulty Hearing Information not available 06/24/2025 What Type Of Diet Are You Following? REGULAR Information not available 08/02/2023 What Was The Date Of Your Most Recent Tobacco Screening? 07/25/2025 Information not available 07/25/2025 How Many Children Do You Have? 2 Information not available 08/02/2023 What Is Your Current Pack Years? 20-29packye ars Information not available 08/02/2023 What Is Your Relationship Status? Information not available 06/24/2025 Do You Have Smoke And Carbon Monoxide Detectors In Your Home? Yes Information not available 09/20/2023 Are You Passively Exposed To Smoke? Yes Information not available 09/20/2023 How Much Tobacco Do You Smoke? 0.25 PPD Information not available 08/02/2023 Has Tobacco Cessation Counseling Been Provided? Yes Information not available 08/02/2023 On What Date Was Tobacco Cessation Counseling Provided? 07/25/2025 Information not available 07/25/2025 How Many Years Have You Smoked Tobacco? 25 Information not available 08/02/2023 Sex: Female Functional Status Question Answer Note LastModified by Organizat ion Details LastModified Time Do you use any illicit or recreational drugs? Yes Marijuanna Information not available 08/02/2023 Do you or have you ever used any other forms of tobacco or nicotine? No Information not available 08/02/2023 What is your level of alcohol consumption? Occasional Information not available 06/24/2025 Are you currently employed? No Information not available 06/24/2025 Are you able to care for yourself independently? Yes Information not available 08/02/2023 What is your exercise level? Moderate very active Information not available 06/24/2025 Mental Status Question Answer Note LastModified by Organization D etails LastModified Time Do you feel stressed (tense, restless, nervous, or anxious, or unable to sleep at night)? [id number] Information not available 06/24/2025 Family History Relationship Description Onset Age of this Age Resolved Age Notes LastModified by Organization Details LastModified Time Father Heart disease kclarkma Not available 2022 10:10:24 Father Type 2 diabetes mellitus Not available 2024 11:39:55 Father Parkinson's disease kclarkma Not available 2022 10:12:30 Mother Heart disease kclarkma Not available 2022 10:10:31 Mother Cerebrovascu lar accident kclarkma Not available 10:10:49 Mother Type 1 diabetes mellitus Not available 2024 11:39:49 Medical History Condition Response Coronary Artery Disease N Other N High Blood Pressure Y Atrial Fibrillation N Kidney or Bladder Problems N Thyroid Problems N GI Problems N Depression N COPD N Blood Clots Y Skin Problems N Eating Disorder N Anemia N Heart Attack ([place]) Y Anxiety Disorder Y Diabetes N Muscle, Joint, or Bone Problems Y Seizures/Epilepsy N Acid Reflux (GERD) N Cancer N Stroke N Asthma N Allergies N ADHD N Substance Abuse N High Cholesterol N Hepatitis N Liver Disease N Schizophrenia N Headaches Y Osteoporosis N Heart Failure N Gynecological History Statement/Question Response Flow Heavy Date of Last Mammogram Date of LMP 01/23/2024 Date of Last Pap Smear Current Control Method None LMP Approximate Obstetrics History GPAL:G 1 P 1 0 0 1 Type Value Full Term 1 Living 1 Total 1 Immunizations Vaccine Type Date Status Note Provider Bebo howell and Address Organization Details Recorded Time Influenza, split virus, trivalent, PF 10/16/2024 completed Derian Núñez PA-C Attn: Accounting,[address], [place], [address], [facility] 10/16/2024 12:02:05 Tdap 06/24/2025 completed MARILIA Chavez, [place] - [facility] 06/24/2025 18:03:05 Past Encounters Encounter ID Performer Location Encounter Start Date Encounter Closed Date Diagnosis/Indication Diagnosis SNOMED-CT Code Diagnosis ICD10 Code Diagnosis IMO Codes Diagnosis Note [id number] Derian Núñez PA-C [facility] [address] [place] [address] 08/02/2023 09:35:21 08/03/2023 15:54:27 Coronary arteriosclerosis 61934854 I25.10 History of myocardial infarction 972773233 I25.2 Mixed anxi ety and depressive disorder 747378033 F41.8 Primary insomnia 0780470 F51.01 Overweight 652921177 E66 .3 [id number] Derian Núñez PA-C [facility] [address] [place] [address] 09/20/2023 14:43:28 09/21/2023 15:06:04 Essential hypertension 26013316 I10 Pain of ri ght shoulder joint 4525435934 2219180 M25.511 Pain of ri ght elbow joint 4699790375 6156846 M25.521 Coronary arteriosclerosis 33278281 I25.10 [id number] Derian Núñez PA-C [facility] [address] [place] [address] 01/23/2024 14:11:49 01/27/2024 15:47:51 Essential hypertension 17895744 I10 History of myocardial infarction 241483107 I25.2 Overweight 142422542 E66 .3 Pain of ri ght shoulder joint 8607136044 7603313 M25.965 [id number] MD 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 Recommende d patient find out [facility] or find out name of hospital of previous workup in order to obtain outside records.- If not able to confirm prior biopsy findings JAZMYNE, will need endometria l biopsy to rule out endometria l cancer- f/u CBC, TSH - treat as indicated by results Thrombocytosis 9787616 D 75.839 - Noted on CBC in July 2023. Discussed result with patient in office today.- f/u CBC as above, peripheral smear Serum crea tinine above reference range 718161191 R79.89 - Noted on CMP in July 2023. Discussed result with patient in office today and concern for possible CKD vs transient elevation. - f/u BMP [id number] Dakota Lynch MD [facility] [address] [place] [address] 09/12/2024 11:20:39 09/13/2024 11:58:59 Dyspnea on exertion 26140112 R06.09 Abdominal pain 14380178 R10.13 Atheroscle rosis of coronary artery without angina pectoris 2477289638 12062 I25.10 [id number] Dakota Lynch MD [facility] [address] [place] [address] 10/16/2024 11:09:43 10/17/2024 15:41:01 Administration of influenza vaccine 87848660 Z23 Multiple n odules of lung 180604762 R91.[address] in 1 year Liver cyst 67244105 K76. 89 Overweight 245053624 E66 .3 Coronary arteriosclerosis 57213627 I25.10 History of myocardial infarction 258693123 I25.2 [id number] Dakota Lynch MD [facility] [address] [place] [address] 05/09/2025 14:50:20 05/13/2025 09:51:30 Essential hypertension 34678859 I10 History of myocardial infarction 540483009 I25.2 Screening for malignant neoplasm of colon 699224926 Z12.11 772168 [id number] Jaylin Pratt MD [facility] [place] [address] [place] [address] 05/23/2025 10:14:36 07/30/2025 14:19:55 Smoker 32315895 F17.200 Discussed cardiovasc ular risks of ongoing nicotine use. Reinforced importance of complete nicotine cessation for cardiovasc ular risk reduction amongst other health benefits. Currently declines need for pharmacoth erapy. Encouraged ongoing discussion s with care team including PCP for additional resources to achieve the goal of complete nicotine cessation. Coronary arteriosclerosis 16282038 I25.118 R00.2 57552054 Maintained on uninterrup macie dual antiplatel et therapy With aspirin and clopidogre l. In light of palpitatio ns, obtain extended ekg monitor tech. Lifestyle modificati ons for palpitatio ns provided. Preoperati ve procedure 328076786 Z01.810 [id number] Patient with known CAD status post revascular ization with incomplete database. Records have been requested. Would not recommend proceeding with elective procedure until cardiovasc ular status has been optimized. If procedure is deemed urgent, would proceed at a high cardiac risk per discussion s with patient and endoscopis t. Overweight 231324674 E66 .3 23614 Ongoing efforts at diet/exerc ise reinforced . Essential hypertension 28307055 I10 34592 Carvedilol 6.25 b.i.d. and lisinopril 20 mg daily. Will need low-sodium diet, ambulatory blood pressure monitoring and reaching out to care team if blood pressure numbers remain suboptimal (under 100/60, over 140/90) or if symptoms. Mixed hyperlipidemia 267 782375 E78.2 30051 Continue high-inten sity statin atorvastat in 80. Check follow-up CMP and lipid panel. Dietary modificati ons encouraged . Chronic ki dney disease stage 3A 298915295 N18.31 1086315352 Encouraged hydration 64 oz water daily. We will check follow-up renal function. [id number] [facility] [address] [place] [address] 06/24/2025 11:21:32 07/09/2025 13:41:21 Requires a tetanus booster 042588932 Z23 2392938 -Patient agreeable to Tdap vaccine.-N P discussed potential side effects and benefits of vaccine. Sampling o f cervix for Papanicolaou smear 299538522 Z12.4 679501 Mixed hyperlipidemia 267 673378 E78.2 58495 -Stable-Co ntinue current therapy: atorvastat in 80mg daily-Rech ivan lipid panel-Tren d LFTs-Patie nt educated on the importance of diet, exercise and medication in the management of this condition. Vitamin D deficiency 347 00098 E55.9 28126 -Recommend taking vitamin D supplement cholecalci ferol 1000 internatio nal units by mouth daily-Rita mmended foods high in vitamin D including: Milk, fortified orange juice, yogurt, salmon, canned tuna, cod liver oil and cereals with vitamin D added-Sandra tor vitamin d levels Prediabetes 080922987 R7 3.03 974066 -Recheck A1c today-No medication therapy-Re commended diabetic diet-Educa macie to check feet daily. Abdominal pain 72142843 R10.9 61574991 -Patient reports her abdomen has been sore since she had hernia repair-Rep orts having vomiting episodes-R eports chronic bloating.- Patient reports family history of scar issues.-Sh e reports intermitte nt constipati on.-Soft, non tender abdomen on exam. Bowel sounds active.-Ab dominal US ordered-Ch ivan tre-lipase level-Cons ider GI referral pending results-Young echavarria to follow up with her surgeon to discuss complicati ons as well-PIERCING ARTIST advised patient to consider tobacco and marijuana cessation due to GI side effects.-P atient agreeable to trial of famotidine 20mg BID PRN to help with symptoms.- ER precaution s advised Marijuana user 273271007 F12.90 3108725 -Patient reports she started using marijuana in her teen years. She uses 5-6 joints marijuana daily.-The patient continues to use marijuana despite previous direction toquit. The patient is aware of risks of marijuana, which includes developing cancer, emphysema, and premature cardiovasc ular disease. Chronic ki dney disease 304644914 N18.9 40270377 -Last GFR and Creatinine : 51/1.29 (05/09/25)- Consider referral to nephrology pending CMP results-Co ntinue to trend BMP-Advise d patient to stay hydrated and avoid nephrotoxi c medication s such as NSAIDs. Leukocytosis 783263209 D 72.829 322641 -Elevated WBC: 11.4 (05/09/25)- Repeat CBC-Plan of care pending results. Cigarette smoker 6540417 7 F17.210 265713 -Patient reports she started using tobacco at age 14. Patient reports <1/2 PPD.-LDCT- due in he patient continues to use tobacco despite previous direction toquit. The patient is aware of risks of tobacco, which includes developing cancer, emphysema, and premature cardiovasc ular disease. Screening mammography 24 177360 Z12.31 25793757 [id number] Jaylin Pratt MD [facility] [place] [address] [place] [address] 07/25/2025 09:53:31 07/30/2025 15:21:59 Coronary arteriosclerosis 41010255 I25.118 89866950 Renew nitroglyce rin spray per patient request pending insurance approval. Continue dual antiplatel et therapy. Due to exertional chest pain responding to sublingual nitroglyce rin obtain treadmill Myoview in light of previous non-STEMI with PCI to OM. Red flag symptoms in the interim reinforced . Would not recommend proceeding with elective GI procedures until cardiovasc ular status further evaluated as outlined. Chronic co mbined systolic and diastolic heart failure 7769861939 51998 I50.42 077828 Echocardio gram March 2023 with LVEF 40-45%. Currently on carvedilol and lisinopril . Obtain updated echocardio gram to monitor EF and intensify heart failure medical therapy if persistent LV dysfunctio n. Essential hypertension 60689330 I10 Carvedilol 6.25 b.i.d., lisinopril 20 daily. Labs from 07/11/2025 with creatinine 1.24. Encouraged hydration ideally with 64 oz of water daily. Will need low-sodium diet, ambulatory blood pressure monitoring and reaching out to care team if blood pressure numbers remain suboptimal (under 100/60, over 140/90) or if symptoms. Smoker 81347748 F17.200 420546 Discussed cardiovasc ular risks of ongoing nicotine use. Reinforced importance of complete nicotine cessation for cardiovasc ular risk reduction amongst other health benefits. Currently declines need for pharmacoth erapy. Encouraged ongoing discussion s with care team including PCP for additional resources to achieve the goal of complete nicotine cessation. After shared decision-m aking prescribed nicotine patch. Overweight 349508833 E66 .3 76444 Efforts at diet/exerc ise reinforced . Mixed hyperlipidemia 267 048744 E78.2 95475 Labs from 07/11/2025 with LDL 72, HDL 50, TG 192. Continue atorvastat in 80. Dietary modificati ons reviewed. Health Concerns Section Related Observation LastModified by Organization Detai ls LastModified Time None Recorded Concern Status LastModified by Organization Details LastModified Time None Recorded Advance Directives Directive N: Payers Insurance Date Sequence Insurance Name Policy Number Policy Basilio Covered Member ID Basilio Member ID Guarantor Name 07/30/2025 1 [facility] - [employer] [facility] - DOS ON OR AFTER 2025 (MEDICAID REPLACEMENT - HMO) [id number] Hayley Azar [id number] Hayley Azar 06/20/2025 1 [place] - [employer] [facility] - DOS PRIOR TO 2025 (MEDICAID REPLACEMENT - HMO) [id number] Hayley Azar [id number] Hayley Azar 05/09/2025 2 [place] Hayley Azar [id number] Hayley Azar 05/09/2025 1 [employer] [id number] Hayley Azar [id number] Hayley Azar Notes Date Note Type Note Provider Name and Address Organization Details Recorded Time 4 text/html ROS as noted in the HPI CT scan results..see report...probable cyst in liver and small pulmonary nodules..no bp meds in 3 weeks Derian Núñez PA-C Attn: Accounting,[address] 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, [place], [address], [facility] 05/09/2025 15:24:28 5 text/html ROS as noted in the HPI I had the pleasure of seeing this patient as a new consultation for recommendations regarding evaluation and management of coronary artery disease and palpitations. 50-year-old With a history of [place] and PCI in [place] with incomplete database. Has been noticing increasing palpitations with exertional dyspnea. She denies any chest pain or pressure. Predominant complaint palpitations with sporadic onset, no triggers lasting for a few sec up to a few minutes. No presyncope or syncope. Stable exertional fatigue. Blood pressure optimal. Working on nicotine cessation. Plans to undergo screening colonoscopy in the near future Cardiac diagnostics:Twelve lead EKG 05/23/2025: Sinus rhythm with left atrial enlargement and nonspecific T-wave changes Jaylin Pratt MD Attn: Accounting,[address] [facility], [place], [address], [facility] 07/28/2025 22:23:30 5 text/html Patient presents to the clinic to establish care. Patient was previously established with [facility] for primary care.Other providers:Cardiology-Dr. Pratt -Medical Hx/Surgical Hx: Hypertension, [place]-stent, prediabetes, CKD, 2 -2 -2 living child, hernia repair x2, anxiety, tobacco use, marijuana use, and blood clots. -Family hx:Mother: -Heart disease, CVA, type 2 diabetesFather: -Heart disease, type 1 diabetes, Parkinson's disease, CKDMaternal Grandmother: -unknownMaternal Grandfather: -unknownPaternal Grandmother: -unknownPaternal Grandfather: -unknown -Tobacco/Drug/Alcohol Use:Patient reports she started using tobacco at age 14. Patient reports <1/2 PPD.Patient reports she started using marijuana in her teen years. She uses 5-6 joints marijuana daily.Reports very rare alcohol use. Chicken pox: Unsure of history of chicken pox. Marital status: singleSexually active: no Occupation: medical leave from [employer], trying to obtain disability Highest level of education: high school diplomaAllergies: KARISHMA Moeller Attn: Accounting,[address] [place], [address], [facility] 07/09/2025 12:36:58 5 text/html ROS as noted in the HPI HPI:Patient presents for follow-up of CAD and CHF. Reports NYHA class 2 dyspnea. Reports left-sided chest pain, substernal, pressure-like, occasionally increase with activity and relieved with sublingual nitroglycerin. Compliant with dual antiplatelet therapy. Denies presyncope or syncope. Sporadic palpitations. Blood pressure optimal. 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 ramusIschemic cardiomyopathy with chronic systolic and diastolic heart failure, LVEF 40-45%HypertensionMixed hyperlipidemiaNicotine useHistory of amphetamine use with UDS positive per discharge summary from [place] in 2022 Cardiac diagnostics:Twelve lead EKG 05/23/2025: Sinus rhythm with left atrial enlargement and nonspecific T-wave changes Extended ekg monitor tech 06/13/2025: average heart rate 81, 8 beat run of nonsustained V-tach, 9 beat run of SVT at 162 beats per minute Jaylin Pratt MD Attn: Accounting,[address] [place], [address], [facility] 07/25/2025 17:22:23 OBGyn Episode Ob Episode Information Episode Created Date Number of Fetuses Patient Bloodtype Patient rh Status Prepregnancy Weight lbs Domestic Partner Domestic Partner Phone Father Name Forge Hand Status 01/26/20 24 1 CLOSED Fetus Data First Name Last Name Admitted to NICU Weight (g) Sex Living Outcome Pediatric Complications Fetus ID Race Codes Race Delivery Type F Full Term [id number] Donald Calculation Initial Donald Date Initial Exam Date Initial Exam Provider Initial Ultrasound Date Last Menstrual Period Date Ultra Sound Weeks Gestation 0 Eighteen To Twenty Week Donald Update Ultra Sound Date Fundal Height At Umbil Quickening Date Ultra Sound Latest Weeks Gestation Final Donald Confirmed By Final Donald Confirmed Date Final Donald Date Ultra Sound Latest Days Gestation 0 0 Menstrual History Last Menstrual Date Menses Monthly On Bcp Conception Prior Menses Frequency Hcg Plus Date Menarche Onset Age Delivery Information Delivery Date Delivery Type Labor Anesthesia Weeks Gestation Incision Type Labor Labor Length Hrs Delivered By Post Complications Tubal Sterilization Discharge Date Comments 6 Discharge Information Feeding Method Contraceptive Method Maternal HG B and HCT Levels
[2025-08-11 11:06] LABS: Hematocrit 38.6 % (35.0-49.0); Hemoglobin 12.0 g/dL (12.0-15.0); Immature Granulocyte Percent A 0.7 % (0.0-0.0); Lymphocytes Absolute Auto 2.98 K/mm3 (1.10-4.50); Mean Corpuscular HGB Conc 31.1 g/dL (32-36); Mean Corpuscular Hemoglobin 27.8 pg (27.0-31.0); Mean Corpuscular Volume 89.4 fL (78.0-102.0); Nucleated Red Blood Cells Absolute Auto 0.00 K/mm3 (0.00-0.00); Nucleated Red Blood Cells Perc 0.0 % (0-0.0); Platelet Count Result 317 K/mm3 (150-420); Red Blood Count 4.32 M/mm3 (4.20-5.40); White Blood Count 10.9 K/mm3 (4.8-10.8)
[2025-08-11 11:18] LABS: Alanine Aminotransferase 18 U/L (6-35); Albumin Level 4.1 g/dL (3.5-5.1); Alkaline Phosphatase 97 U/L (38-126); Anion Gap 10 mmol/L (4-12); Aspartate Amino Transferase 25 U/L (14-36); Bilirubin,Total 0.5 mg/dL (0.2-1.3); Blood Urea Nitrogen 26 mg/dL (7-17); Calcium 9.0 mg/dL (8.4-10.2); Carbon Dioxide 24 mmol/L (22-30); Chloride 106 mmol/L (98-107); Estimated CRCL calculation 45 ml/min; Estimated Glomerular Filt Rate 44; Glucose 129 mg/dL (65-110); Lipase 68 U/L (23-300); Osmolality Calculated 296 mOsm/kg (285-295); Potassium 4.6 mmol/L (3.4-5.0); Sodium 140 mmol/L (137-145); Total Protein 7.7 g/dL (6.3-8.2)
[2025-08-11 11:21] LABS: INR 0.9; Partial Thromboplastin Time 24.7 Sec (23.9-30.70); Prothrombin Time 10.3 Seconds (9.50-12.1)
[2025-08-11 11:29] LABS: NT Pro B Type Natriuretic Pept 570 pg/mL (19.9-100); Troponin I < 0.012 ng/mL (0.000-0.034)
[2025-08-11] MEDS: SODIUM CHLORIDE 0.9% IV 1,000 ML 999 ML IV CONT (11:49)
[2025-08-11] MEDS: HYDROmorphone HCL INJ (*CRX) 2 MG/ML VIAL 0.5 MG IV PUSH (11:50)
[2025-08-11] MEDS: ONDANSETRON INJ 4 MG/2 ML VIAL IV PUSH (11:50)
[2025-08-11 12:03] LABS: Add Urine Microscopic? YES; Appearance Urine Clear (Clear); Glucose Urine UA Negative (Negative); Leukocyte Esterase Ur Trace LEU/UL (Negative); Nitrate Urine Negative (Negative); Specific Grav Ur <= 1.005 (1.010-1.020)
== END 2025-08-11 13:26 | disposition left against medical advice (07) ==
PROVIDERS: Emergency Provider Emergency Medicine; PCP Nurse Practitioner Family
DX: R07.9 Chest pain, unspecified (principal); R10.9 Unspecified abdominal pain; G89.29 Other chronic pain; I10 Essential (primary) hypertension; Z79.82 Long term (current) use of aspirin; Z79.01 Long term (current) use of anticoagulants; Z79.899 Other long term (current) drug therapy
CPT/HCPCS: 36415; 71045; 74177; 80053; 81001; 83690; 83880; 84484; 85025; 85610; 85730; 93005; 96361; 96374; 96375; 99284; J1171; J2405; J7030; Q9967